=== PATIENT | male | born 1965 | race Caucasian/White ===

== ENCOUNTER 2018-07-22 09:22 | Day surgery (SDC) | payer OTHER ==
[~2018-07-22] VITALS: Ht 167.6 cm; Wt 93.0 kg
[~2018-07-22 09:22] MED LIST: AMLO10TA5 PO; AMPICILLIN SOD/SULBACTAM SOD 3 GM in D5W MINI-BAG PLUS 100 ML IV ONE; ATEN50TA2 PO; BASA100I SC; FOLI1TAB11 PO; GABA800T4 PO; LOSA50TA88 PO; LR 1,000 ML IV ONE; MAGN400T2 PO; METF500T13 PO; NALT50TA4 PO; SERT25TA85 PO; THIA100TA PO; TRAZO50TA PO; TRUL10IN SC; dexameTHASONE 4 MG/ML 1ML VIAL (J1100) IV ONE
[2018-07-22] MEDS ORDERED: THROMBIN SOLN 5,000 UNITS VIAL As Ordered ONE (10:47)
[2018-07-22] MEDS ORDERED: LIDOCAINE 2% W/ EPINEPHRINE 1.7 ML DENTAL INJ As Ordered ONE (10:47)
[2018-07-22] MEDS ORDERED: CHLORHEXIDINE GLUCONATE 0.12 % 15ML UDC (PERIDEX ORAL RINSE) As Ordered ONE (10:48)
[2018-07-22] MEDS ORDERED: ePHEDrine SULFATE 25 MG/5 ML(5MG/ML) SYRINGE As Ordered ONE ×2 (12:18→12:48)
[2018-07-22] MEDS ORDERED: ONDANSETRON 4MG/2ML VIAL (J2405) As Ordered ONE (12:18)
[2018-07-22] MEDS ORDERED: fentaNYL 250 MCG/5 ML INJECTION (J3010) As Ordered ONE (12:18)
[2018-07-22] MEDS ORDERED: LIDOCAINE 2% JELLY 6 ML SYRINGE As Ordered ONE (12:18)
[2018-07-22] MEDS ORDERED: ROCURONIUM BROMIDE 50 MG/5 ML VIAL As Ordered ONE ×2 (12:18→12:57)
[2018-07-22] MEDS ORDERED: LIDOCAINE 2% INJ 100 MG/5 ML SDV (FOR ANES.) As Ordered ONE (12:18)
[2018-07-22] MEDS ORDERED: MIDAZOLAM INJ 2 MG/2 ML VIAL (J2250) As Ordered ONE (12:18)
[2018-07-22] MEDS ORDERED: PROPOFOL 200 MG/20 ML VIAL As Ordered ONE (12:19)
[2018-07-22] MEDS ORDERED: SUGAMMADEX SODIUM 500 MG/5 ML VIAL (BRIDION) As Ordered ONE (12:49)
[2018-07-22] MEDS ORDERED: fentaNYL 100 MCG/2 ML INJECTION (J3010) As Ordered ONE (14:23)
[2018-07-22] MEDS ORDERED: NORCO, ANEXSIA 5/325MG TABLET (HYDROcodone/ACETAMINOPHEN) PO PRN (14:30)
[2018-07-22] MEDS: fentaNYL 100 MCG/2 ML INJECTION (J3010) IV PRN ×4 (14:30→14:45)
--- NOTE | 2018-07-22 14:43 | RO ---
DATE OF PROCEDURE: 07/22/2018 PREOPERATIVE DIAGNOSES: 1. Bilateral mandibular aura. 2. Hopeless dentition including teeth numbers 3, 4, 5, 6, 10, 11, 12, 13, 14, 15, 16, 19, 20, 21, 22, 23, 24, 25, 26, 27, 28, 29 and 30. POSTOPERATIVE DIAGNOSIS: Status post the above. PROCEDURE PERFORMED: 1. Bilateral mandibular aura removal. 2. Extraction of all the aforementioned teeth. SURGEON: Jasper Macdonald MD [employer] OPERATOR HELPER: ANESTHESIA: General endotracheal anesthesia via nasal CAMI. SPECIMEN: Teeth for gross only. INDICATIONS FOR SURGERY: Ozzie is a pleasant 52-year-old male who was referred my office for evaluation for extraction of all of his remaining teeth and reduction of large mandibular aura. He has multiple comorbidities including obesity, obstructive sleep apnea and diabetes, as well as hypertension and he also has severe dental anxiety and wishes to be completely put to sleep. He is not a candidate for office anesthesia, therefore given the option of nitrous oxide with local in the office versus general anesthesia in an operating room setting. He did choose the latter due to his severe anxiety. He did see his primary care physician for preop and cleared the patient for general anesthesia and the procedure and he is at low risk for the procedure. A complete history and physical was completed and is in the patient's chart as well as an informed consent which was reviewed and signed by the patient. DESCRIPTION OF PROCEDURE: On July 22, 2018 patient presented to preop holding area. Any last minute questions were addressed. At that point, the patient was taken back to the operating room. He was laid supine on the operating room table. Ulnar nerve protectors were placed. Noninvasive cardiac monitors were applied. At that point the patient underwent general anesthesia he was intubated with a nasal CAMI which was then secured to the patient's forehead. He was then prepped and draped in the usual sterile fashion. A time out procedure was performed to identify the patient, the procedure and any other precautions. Preoperative antibiotics and steroids were given in the IV. At this point, a moist throat pack was inserted in the patient's oropharynx followed by the administration of 10 Carpule's of 2% lidocaine with 1:100,000 epinephrine as local infiltration and blocks. At this point, a straight elevator was used to luxate teeth number 3, 4, 5 and 6, and a forceps was then used to further luxate and deliver the teeth. Each extraction socket was copiously irrigated and curetted. No sinus exposure was noted. Alveoloplasty was performed in those socket areas to remove any sharp bony edges and undercuts. Gelfoam was replaced in each socket and the papilla were then reapproximated with #3-0 chromic sutures. Attention was then given to teeth numbers 10, 11, 12, 13, 14, 15, and 16. A full-thickness flap was raised in areas of 16, 15 and 14. A small amount of buccal bone was removed from sites number 14, 15 and 16, and at this point forceps were then used to luxate and remove teeth number 10, 11, 12, 13, 14, 15 and 16 without any issues. All the sockets were copiously irrigated and curetted. No sinus exposure was noted. Gelfoam were inserted in socket numbers 12, 13, 14, 15 and 16. Flaps were then closed primarily with #3-0 chromic sutures. Attention was then given to the mandibular arch where teeth numbers [address] to [address] were luxated and delivered without any incident. Once all the teeth were luxated and delivered, a full-thickness flap was raised along the extraction sockets with bilateral distal release incisions of the mandible. Alveoloplasty was performed to remove any sharp into radicular bone, any sharp undercuts and any sharp areas of bone with a football bur. Lingual dissection was also performed to expose the mandibular aura bilaterally, and a Hussein was then used to retract the flaps and protect the mucosa. A Fissure bur was then used to score the aura bilaterally followed by the use of a chisel and a mallet to remove the aura in their entirety. Once this was performed, a bone file was then used to smooth any residual bony areas in the mandible down to a smooth finish. Abundant irrigation was performed. Cautery was used to achieve complete hemostasis of soft tissue and bone. At this point the flaps were then closed from the left posterior mandible working across the anterior of the mandible and into the right posterior mandible with interrupted #3-0 chromic sutures. To mention, I did place Gelfoam in the molar sites as well as in the canine sites in the mandible. Once this was performed and all the flaps were closed, 10 minutes were then taken to make sure that the patient does have complete hemostasis, which was noticed. The oral cavity was irrigated and suctioned. The throat pack was removed. The patient was then awakened from general anesthesia and extubated and taken back to the postanesthesia care unit (PACU). COMPLICATIONS: None to mention at the time of surgery. ESTIMATED BLOOD LOSS: 50 mL. DRAINS: There were no drains placed.
[2018-07-22 18:00] VITALS: BP 148/80
== END 2018-07-22 18:00 | disposition home or self-care (01) ==
LOC: M SDC 09:22
PROVIDERS: ATTEND Dentist
DX: K02.9 Dental caries, unspecified (principal); M27.8 Other specified diseases of jaws; I10 Essential (primary) hypertension; E11.40 Type 2 diabetes mellitus with diabetic neuropathy, unspecified; Z79.84 Long term (current) use of oral hypoglycemic drugs; Z79.899 Other long term (current) drug therapy; G47.33 Obstructive sleep apnea (adult) (pediatric); E66.01 Morbid (severe) obesity due to excess calories
CPT/HCPCS: 88300; D7210; D7310; D7473; D9223; J1100; J2250; J2405; J3010

== ENCOUNTER → 2018-09-30 | Outpatient (REF) ==
[~2018-09-30] MED LIST changes: -AMPICILLIN SOD/SULBACTAM SOD 3 GM in D5W MINI-BAG PLUS 100 ML IV ONE; -LR 1,000 ML IV ONE; +TRAZ1TAB10 PO; -TRAZO50TA PO; -dexameTHASONE 4 MG/ML 1ML VIAL (J1100) IV ONE
--- NOTE | 2018-10-01 03:58 | REP ---
Clinical: Pain and disability. Technique: Neutral and frog lateral views of the right hip. Findings: Mild degenerative changes include increased sclerosis to the acetabular subtle early spurring along the margin of acetabular roof and mild joint space narrowing. No periarticular erosive changes or calcified loose bodies are identified. No acute fracture or dislocation. Findings: Mild arthritic degenerative changes. Electronically Signed by Adan Steve MD 10/01/2018 03:49 A
--- NOTE | 2018-10-01 04:38 | REP ---
Clinical: Pain and disability. Technique: AP, lateral, coned-down views of the lumbosacral spine. Findings: Moderate multilevel degenerative changes through the visualized lower thoracic and lumbosacral spine includes osteophytosis, endplate sclerosis, hypertrophic facet changes, and minimal L5-S1 disc space narrowing. No acute fracture / compression injury or subluxation. Impression: Moderate multilevel degenerative spondylosis. Electronically Signed by Adan Steve MD 10/01/2018 04:30 A
== END ==
LOC: M SMT 08:59
PROVIDERS: ATTEND Internal Medicine
DX: M51.36 Other intervertebral disc degeneration, lumbar region (principal)